=== PATIENT | male | born 1990 | race American Indian/Alaskan Native ===

== ENCOUNTER 2020-05-18 21:26 | Emergency (ER) | payer SELFPAY ==
--- NOTE | 2020-05-18 22:59 | Emergency Department Report ---
ED Seizure HPI - General Chief Complaint: Seizure Stated Complaint: SEIZURE Time Seen by Provider: 05/18/20 22:58 Source: patient, RN notes reviewed Mode of arrival: Ambulatory Limitations: No Limitations - History of Present Illness Initial Comments: The patient was evaluated in the emergency department for symptoms described in the history of present illness. He/she was evaluated in the context of the global COVID-19 pandemic, which necessitated consideration that the patient might be at risk for infection with the virus that causes COVID-19. In stitutional protocols and algorithms that pertain to the evaluation of patients at risk for COVID-19 are in a state of rapid change based on information released by regulatory bodies including the CDC and federal and state organizations. These policies and algorithms were followed during the patient's care in the emergency department. Please note that these policies, procedures and recommendations changed on a rapid basis. Patient is a 30-year-old gentleman. He is not known to myself previously. He recently moved here from [place]. He states he is going to follow-up closely with an outpatient primary care doctor, but he cannot recall their name. He reports a history of seizure disorder, and reports that he takes Dilantin 300 mg orally twice daily. He ran out of his medication 2 or 3 days ago. He presents to the ER today with a complaint of resolved seizure. Patient was at home, laying down, when he had a convulsive event. He is not sure how long it lasted. He states it was witnessed by a family member. Prior to the event, the patient reports being in his usual state of health, and denies all complaints. After the reported seizure/convulsive event, the patient states he has a mild headache, which is frontal, not sudden or thunderclap in nature normal and not maximal in intensity, not the worst headache of his life, and consistent with prior headaches. He states that he typically gets headaches with seizures. His last seizure was a few years ago. He denies cough, loss of taste, loss of smell, and urinary symptoms. MD Complaint: seizure -: Sudden Description of Episode: loss of consciousness, tonic-clonic movement -: second(s) Witnessed:: Yes Trauma: No Seizure History: known seizure disorder, other Place: home Possible Precipitating Event: other (Ran out of medication) Associated Symptoms: denies other symptoms - Related Data Previous Rx's Medication Instructions Recorded Last Taken Type Phenytoin Sodium Extended 300 mg PO BID #60 capsule 05/18/20 Unknown Rx Allergies Allergy/AdvReac Type Severity Reaction Status Date / Time No Known Allergies Allergy Unverified 05/18/20 22:38 ED Review of Systems ROS: Stated complaint: SEIZURE Other details as noted in HPI Comment: All other systems reviewed and negative Neurological: headache ED Past Medical Hx - Past Medical History Previous Medical History?: Yes Hx Seizures: Yes - Surgical History Past Surgical History?: No - Social History Smoking Status: Current Every Day Smoker Substance Use Type: None - Medications Home Medications: Home Medications Medication Instructions Recorded Confirmed Last Taken Type Phenytoin Sodium Extended 300 mg PO BID #60 capsule 05/18/20 Unknown Rx ED Physical Exam - General Limitations: No Limitations General appearance: alert, in no apparent distress - Head Head exam: Present: atraumatic, normocephalic - Eye Eye exam: Present: normal appearance, PERRL, EOMI, other (Visual acuity intact to finger counting, color perception, reading at a close distance). Absent: nystagmus - ENT ENT exam: Present: normal exam, normal orophraynx, mucous membranes moist, normal external ear exam - Neck Neck exam: Present: normal inspection, full ROM. Absent: tenderness, meningismus - Respiratory Respiratory exam: Present: normal lung sounds bilaterally. Absent: respiratory distress, wheezes, rales, rhonchi, stridor, decreased breath sounds - Cardiovascular Cardiovascular Exam: Present: regular rate, normal rhythm, normal heart sounds. Absent: bradycardia, tachycardia, irregular rhythm, systolic murmur, diastolic murmur, rubs, gallop - GI/Abdominal GI/Abdominal exam: Present: soft. Absent: distended, tenderness, guarding, rebound, rigid, pulsatile mass - Rectal Rectal exam: Present: deferred - Extremities Exam Extremities exam: Present: normal inspection, full ROM, other (2+ pulses noted in the bilateral upper and lower extremities. There is no palpable cord. negative Homans sign. Muscular compartments are soft. The pelvis is stable.). Absent: pedal edema, calf tenderness - Back Exam Back exam: Present: normal inspection, full ROM. Absent: tenderness, CVA tenderness (R), CVA tenderness (L), paraspinal tenderness, vertebral tenderness - Neurological Exam Neurological exam: Present: alert, oriented X3, normal gait, other (No facial droop. Tongue midline. Extraocular movements intact bilaterally. Facial sensation intact to light touch in V1, V2, V3 distribution bilaterally. 5 and a 5 strength in 4 extremities. Sensation intact to light touch in 4 extremities.). Absent: motor sensory deficit - Psychiatric Psychiatric exam: Present: normal affect, normal mood - Skin Skin exam: Present: warm, dry, intact, normal color. Absent: rash ED Course Vital Signs 05/18/20 05/18/20 05/18/20 22:29 22:40 23:10 Temperature 98.7 F 98.2 F Pulse Rate 78 88 Respiratory 16 16 16 Rate Blood Pressure 148/99 Blood Pressure 148/99 146/96 [Left] O2 Sat by Pulse 98 98 Oximetry - Reevaluation(s) Reevaluation #1: 05/18/20 23:08 Differential diagnosis, include but not limited to: Seizure Medication refill Assessment and plan: Cooperative 30-year-old gentleman with history of seizure disorder normal ran out of his Dilantin, who presents as clinically sober with a GCS of 15, NIH score of 0, in no acute distress. Screening laboratory studies, EKG ordered we will administer Dilantin in the emergency room. We will observe patient in the emergency room. Patient is amenable to this plan of care. He is instructed to not drive or operate motor vehicles for the next 6 months. Reevaluation #2: 05/18/20 23:59 Vital signs are reviewed and appreciated. No seizures while here in the emergency room. Patient playing with his cell phone, and does not appear to be any acute distress. He states he is reliable to follow-up. He will be discharged at this time. ED Medical Decision Making - Lab Data Result diagrams: 05/18/20 22:48 Vital Signs 05/18/20 05/18/20 22:29 22:40 Temperature 98.7 F Pulse Rate 78 Respiratory 16 16 Rate Blood Pressure 148/99 Blood Pressure 148/99 [Left] O2 Sat by Pulse 98 Oximetry - EKG Data -: EKG Interpreted by Me EKG shows normal: sinus rhythm Rate: normal - EKG Data When compared to previous EKG there are: previous EKG unavailable 05/18/20 23:07 Sinus rhythm, 69 bpm, there is a borderline leftward axis deviation, the QTC is within normal limits, sinus arrhythmia, minimal motion artifact, this EKG is not a STEMI. There is no prior for comparison. Critical care attestation.: If time is entered above; I have spent that time in minutes in the direct care of this critically ill patient, excluding procedure time. ED Disposition Clinical Impression: History of seizure, Medication refill Disposition: - TO HOME OR SELFCARE Is pt being admited?: No Does the pt Need Aspirin: No Condition: Stable Instructions: Recurrent Seizures Adult (ED) Additional Instructions: Do not drive or operate motor vehicles for the next 6 months, or until cleared to do so by a primary care doctor or neurologist. Take the prescribed seizure medication as needed and directed, follow-up with a primary care doctor or neurologist within the next 5 to 7 days. Avoid consumption of alcohol, tobacco, smoke products. Please return to the emergency room right away with new pain, worsening, migration of the normal projectile vomiting, change in mental status, confusion, inability to tolerate liquid feeds, recurrent convulsive events/seizures, or new, worsened or different symptoms nonrigid on the initial emergency room evaluation. Prescriptions: Phenytoin Sodium Extended 300 mg PO BID #60 capsule Referrals: CHIO ARNDT MD [Staff Physician] - 3-5 Days FLETCHER MONCADA MD [Referring] - 3-5 Days
[2020-05-18] MEDS ORDERED: PHENYTOIN 100 MG CAPSULE.ER PO ONE (23:04)
[2020-05-18 23:25] LABS: BUN/Creatinine Ratio 14; Blood Urea Nitrogen 13 mg/dL (9-20); Calcium 9.4 mg/dL (8.4-10.2); Hemolysis Index 17
[2020-05-19] VITALS: BP 137/89
== END 2020-05-19 00:05 | disposition home or self-care (01) ==
LOC: ED 21:26
DX: G40.909 Epilepsy, unspecified, not intractable, without status epilepticus (principal); F17.200 Nicotine dependence, unspecified, uncomplicated; Z76.0 Encounter for issue of repeat prescription; Z79.899 Other long term (current) drug therapy
CPT/HCPCS: 36415; 80048; 80185; 82550; 83735; 93005

== ENCOUNTER 2020-06-19 09:01 | Emergency (ER) | payer SELFPAY ==
[2020-06-19 09:10] VITALS: BP 155/96
[2020-06-19 10:37] LABS: Hemoglobin 18.5 gm/dl (11.8-15.2); Mean Corpuscular HGB Conc 35 % (32-34); Mean Corpuscular Volume 79 fl (84-94); Red Blood Count 6.74 M/mm3 (3.65-5.03); Red Cell Distribution Width 14.2 % (13.2-15.2)
[2020-06-19 10:46] LABS: BUN/Creatinine Ratio 16; Blood Urea Nitrogen 13 mg/dL (9-20); Calcium 9.8 mg/dL (8.4-10.2); Hemolysis Index 37
[2020-06-19 10:59] LABS: Platelet Count 131 K/mm3 (140-440)
== END 2020-06-19 13:30 | disposition left against medical advice (07) ==
LOC: ED 09:01
DX: R56.9 Unspecified convulsions (principal); Z53.21 Procedure and treatment not carried out due to patient leaving prior to being seen by health care provider
CPT/HCPCS: 36415; 80048; 85027

== ENCOUNTER 2021-07-11 18:06 | Emergency (ER) | payer SELFPAY ==
[2021-07-11] MEDS ORDERED: KETOROLAC 30 MG/1 ML INJ IV ONE (18:40)
[2021-07-11 19:06] LABS: Basophils % (Auto) 0.3 % (0.0-1.8); Eosinophils # (Auto) 0.1 K/mm3 (0.0-0.4); Eosinophils % (Auto) 1.7 % (0.0-4.3); Hematocrit 49.2 % (35.5-45.6); Hemoglobin 16.1 gm/dl (11.8-15.2); Lymphocytes # (Auto) 2.9 K/mm3 (1.2-5.4); Lymphocytes % (Auto) 36.4 % (13.4-35.0); Mean Corpuscular HGB Conc 33 % (32-34); Mean Corpuscular Volume 81 fl (84-94); Monocytes # (Auto) 0.7 K/mm3 (0.0-0.8); Monocytes % (Auto) 9.3 % (0.0-7.3); Platelet Count 158 K/mm3 (140-440); Red Cell Distribution Width 14.3 % (13.2-15.2)
[2021-07-11 19:15] LABS: BUN/Creatinine Ratio 14; Blood Urea Nitrogen 13 mg/dL (9-20); Calcium 9.1 mg/dL (8.4-10.2); Hemolysis Index 11
[2021-07-11] MEDS ORDERED: FOSPHENYTOIN 1,000 MG.PE in SODIUM CHLORIDE 0.9% 100 ML IV ONE (19:32)
--- NOTE | 2021-07-11 19:35 | Emergency Department Report ---
ED Seizure HPI - General Chief Complaint: Seizure Stated Complaint: SEIZURE Time Seen by Provider: 07/11/21 18:39 Source: patient Mode of arrival: Ambulatory Limitations: No Limitations - History of Present Illness Initial Comments: 31-year-old male, history of seizures, presents to ED following seizure at home. Patient states he normally takes Dilantin, however, states he has been out of his medication for the last day and a half. Patient had a witnessed seizure at home by his girlfriend. Denies any head injury. Patient was lying on the couch during his seizure. Patient currently complaining of his usual postictal headache. States he usually gets a headache following his seizures. MD Complaint: seizure -: This evening Description of Episode: loss of consciousness Witnessed:: Yes Seizure History: known seizure disorder Place: home Possible Precipitating Event: other (Ran out of medications) Associated Symptoms: denies other symptoms Treatments Prior to Arrival: none - Related Data Previous Rx's Medication Instructions Recorded Last Taken Type Phenytoin Sodium Extended 300 mg PO BID #60 capsule 07/11/21 Unknown Rx Allergies Allergy/AdvReac Type Severity Reaction Status Date / Time No Known Allergies Allergy Unverified 05/18/20 22:38 ED Review of Systems ROS: Stated complaint: SEIZURE Other details as noted in HPI Comment: All other systems reviewed and negative Constitutional: denies: fever Gastrointestinal: denies: nausea, vomiting Neurological: headache. denies: weakness, numbness ED Past Medical Hx - Past Medical History Hx Seizures: Yes - Social History Smoking Status: Current Every Day Smoker Substance Use Type: None - Medications Home Medications: Home Medications Medication Instructions Recorded Confirmed Last Taken Type Phenytoin Sodium Extended 300 mg PO BID #60 capsule 07/11/21 Unknown Rx ED Physical Exam - General Limitations: No Limitations General appearance: alert, in no apparent distress - Head Head exam: Present: atraumatic, normocephalic - Eye Eye exam: Present: normal appearance, PERRL, EOMI - ENT ENT exam: Present: mucous membranes moist - Neck Neck exam: Present: normal inspection - Respiratory Respiratory exam: Present: normal lung sounds bilaterally. Absent: respiratory distress - Cardiovascular Cardiovascular Exam: Present: regular rate, normal rhythm - GI/Abdominal GI/Abdominal exam: Present: soft. Absent: distended, tenderness - Extremities Exam Extremities exam: Present: normal inspection - Neurological Exam Neurological exam: Present: alert, oriented X3, CN II-XII intact. Absent: motor sensory deficit - Psychiatric Psychiatric exam: Present: normal affect, normal mood - Skin Skin exam: Present: warm, dry, intact, normal color ED Course Vital Signs 07/11/21 07/11/21 07/11/21 18:12 19:14 21:00 Temperature 98.5 F Pulse Rate 102 H 73 Respiratory 20 16 14 Rate Blood Pressure 157/104 128/82 [Right] O2 Sat by Pulse 98 97 99 Oximetry ED Medical Decision Making - Lab Data Result diagrams: 07/11/21 18:45 07/11/21 18:45 - Medical Decision Making No seizure activity here in the ED. Patient A&O x3, no neuro deficits present. Labs unremarkable except for very low normal Dilantin level. Patient was given IV load here in the ED. Will discharge at this time with prescription. Outpatient follow-up advised, return precautions given. - Differential Diagnosis Seizure, GI abnormality, subtherapeutic level of medication Critical care attestation.: If time is entered above; I have spent that time in minutes in the direct care of this critically ill patient, excluding procedure time. ED Disposition Clinical Impression: Seizure Disposition: 01 HOME / SELF CARE / HOMELESS Is pt being admited?: No Condition: Stable Instructions: Seizure, Adult, [id number] Prescriptions: Phenytoin Sodium Extended 300 mg PO BID #60 capsule Referrals: FLETCHER MONCADA MD [Referring] - 3-5 Days [facility] [Provider Group] - 3-5 Days Time of Disposition: 20:55
[2021-07-11 21:19] VITALS: BP 128/82
== END 2021-07-11 21:16 | disposition home or self-care (01) ==
LOC: ED 18:06
DX: G40.909 Epilepsy, unspecified, not intractable, without status epilepticus (principal); F17.200 Nicotine dependence, unspecified, uncomplicated
CPT/HCPCS: 36415; 80048; 80185; 85025; 96365; 96375; 99283; J1885; Q2009

== ENCOUNTER 2021-08-26 09:09 | Emergency (ER) | payer SELFPAY ==
[2021-08-26] MEDS ORDERED: ACETAMINOPHEN 325 MG TAB PO ONE (10:25)
[2021-08-26] MEDS ORDERED: METOCLOPRAMIDE 10 MG TAB PO ONE (10:25)
[2021-08-26] MEDS ORDERED: IBUPROFEN 400 MG TAB PO ONE (10:25)
[2021-08-26] MEDS ORDERED: PHENYTOIN 100 MG CAPSULE.ER PO ONE (10:25)
--- NOTE | 2021-08-26 10:26 | Emergency Department Report ---
ED General Adult HPI - General Chief complaint: Seizure Stated complaint: HAD SEIZURE AT WORK PUI?: No Time Seen by Provider: 08/26/21 09:59 Source: patient, RN notes reviewed, old records reviewed Mode of arrival: Ambulatory Limitations: No Limitations - History of Present Illness Initial comments: The patient was evaluated in the emergency department for symptoms described in the history of present illness. He/she was evaluated in the context of the global COVID-19 pandemic, which necessitated consideration that the patient might be at risk for infection with the virus that causes COVID-19. Institutional protocols and algorithms that pertain to the evaluation of patients at risk for COVID-19 are in a state of rapid change based on information released by regulatory bodies including the CDC and federal and state organizations. These policies and algorithms were followed during the patient's care in the emergency department. Please note that these policies, procedures and recommendations changed on a rapid basis. The patient is a 31-year-old gentleman, whom I have evaluated in the past, who presents to the ER today with a complaint of "I think I had a seizure at work." Patient is supposed to take phenytoin/Dilantin, 300 mg twice daily, and reports intermittent compliance with his medications. The patient states that he was at work in the usual state of health, and he believes that he had a seizure. Prior to the seizure/convulsive event, he denies all pain and symptoms. He thinks that he may have hit his head, and has a mild left-sided headache. Patient denies neck pain, chest pain, abdominal pain, shortness of breath, drug use, urinary symptoms, extremity weakness and numbness. His last convulsive event was a few months ago. He states he is attempting to obtain medical insurance so he can follow-up with an outpatient physician -: Sudden Location: head Consistency: now resolved Improves with: none Worsens with: none Associated Symptoms: denies other symptoms - Related Data Previous Rx's Medication Instructions Recorded Last Taken Type Acetaminophen [Non-Aspirin Extra 500 mg PO Q6HR PRN #30 tablet 08/26/21 Unknown Rx Strength] Metoclopramide [Reglan] 10 mg PO QID PRN #30 tablet 08/26/21 Unknown Rx Phenytoin Sodium Extended 300 mg PO BID #60 capsule 08/26/21 Unknown Rx Allergies Allergy/AdvReac Type Severity Reaction Status Date / Time No Known Allergies Allergy Unverified 05/18/20 22:38 ED Review of Systems ROS: Stated complaint: HAD SEIZURE AT WORK Other details as noted in HPI Constitutional: denies: fever Eyes: denies: eye discharge, vision change ENT: denies: epistaxis Respiratory: denies: cough Cardiovascular: denies: chest pain Gastrointestinal: denies: abdominal pain, nausea, vomiting Neurological: headache. denies: weakness, numbness, paresthesias ED Past Medical Hx - Past Medical History Hx Seizures: Yes - Social History Smoking Status: Current Every Day Smoker Substance Use Type: None - Medications Home Medications: Home Medications Medication Instructions Recorded Confirmed Last Taken Type Acetaminophen [Non-Aspirin Extra 500 mg PO Q6HR PRN #30 tablet 08/26/21 Unknown Rx Strength] Metoclopramide [Reglan] 10 mg PO QID PRN #30 tablet 08/26/21 Unknown Rx Phenytoin Sodium Extended 300 mg PO BID #60 capsule 08/26/21 Unknown Rx ED Physical Exam - General Limitations: No Limitations General appearance: alert, in no apparent distress - Head Head exam: Present: atraumatic, normocephalic - Eye Eye exam: Present: normal appearance, PERRL, EOMI, other (Visual acuity intact to finger counting, color perception, reading at a close distance). Absent: nystagmus - ENT ENT exam: Present: normal exam, normal orophraynx, mucous membranes moist, normal external ear exam - Neck Neck exam: Present: normal inspection, full ROM. Absent: tenderness, meningism us - Respiratory Respiratory exam: Present: normal lung sounds bilaterally. Absent: respiratory distress, wheezes, rales, rhonchi, stridor, decreased breath sounds - Cardiovascular Cardiovascular Exam: Present: regular rate, normal rhythm, normal heart sounds. Absent: bradycardia, tachycardia, irregular rhythm, systolic murmur, diastolic murmur, rubs, gallop - GI/Abdominal GI/Abdominal exam: Present: soft. Absent: distended, tenderness, guarding, rebound, rigid, pulsatile mass - Rectal Rectal exam: Present: deferred - Extremities Exam Extremities exam: Present: normal inspection, full ROM, other (2+ pulses noted in the bilateral upper and lower extremities. There is no palpable cord. negative Homans sign. Muscular compartments are soft. The pelvis is stable.). Absent: pedal edema, calf tenderness - Back Exam Back exam: Present: normal inspection, full ROM. Absent: tenderness, CVA tenderness (R), CVA tenderness (L), paraspinal tenderness, vertebral tenderness - Neurological Exam Neurological exam: Present: alert, oriented X3, normal gait, other (No facial droop. Tongue midline. Extraocular movements intact bilaterally. Facial sensation intact to light touch in V1, V2, V3 distribution bilaterally. 5 and a 5 strength in 4 extremities. Sensation intact to light touch in 4 extremities.). Absent: motor sensory deficit - Psychiatric Psychiatric exam: Present: normal affect, normal mood - Skin Skin exam: Present: warm, dry, intact, normal color. Absent: rash ED Course Vital Signs 08/26/21 08/26/21 09:27 13:36 Temperature 98.0 F Pulse Rate 87 75 Respiratory 15 18 Rate Blood Pressure 136/90 Blood Pressure 138/82 [Right] O2 Sat by Pulse 99 Oximetry ED Medical Decision Making - Lab Data Vital Signs 08/26/21 09:27 Temperature 98.0 F Pulse Rate 87 Respiratory 15 Rate Blood Pressure 136/90 O2 Sat by Pulse 99 Oximetry - EKG Data -: EKG Interpreted by Nh EKG shows normal: sinus rhythm Rate: normal - EKG Data When compared to previous EKG there are: no significant change 08/26/21 12:20 The EKG is interpreted 10: 12 Sinus rhythm, 64 bpm. Normal axis, normal intervals, high left ventricular voltage, and motion artifact. Unchanged from prior EKG from May 18, 2020. This EKG is not a STEMI. - Medical Decision Making Differential diagnosis, including but not limited to: Seizure, migraine headache, tension headache, cluster headache Noncompliance, medication refill Assessment and plan: 31-year-old gentleman, with a history of seizures, whom I have seen in the past, who is noncompliant with his Dilantin, who presents to the ER with complaint of history of seizure, which is now resolved. He is clinically sober, with a GCS of 15, NIH score of 0, and an unremarkable physical and neurologic examination. Do not see indication for advanced imaging given young age, benign neurologic examination, and overall presentation. Patient at low risk for major adverse intracranial event as per the [place] head CT rule Patient was observed in the ER for hours without clinical deterioration. He was advised to not drive or operate motor vehicles for the next 6 months. Will discharge with as needed Tylenol, Reglan, and refill his phenytoin/Dilantin. Return precautions reviewed. All questions answered. Critical care attestation.: If time is entered above; I have spent that time in minutes in the direct care of this critically ill patient, excluding procedure time. ED Disposition Clinical Impression: History of seizure, Noncompliance with medication regimen, Medication refill, Headache Disposition: 01 HOME / SELF CARE / HOMELESS Is pt being admited?: No Does the pt Need Aspirin: No Condition: Good Instructions: Head Injury, Adult, Seizure, Adult Additional Instructions: Please take the pain medication and headache medication as needed and directed. Please take your Dilantin/phenytoin as directed. Noncompliance with seizure medication may result in breakthrough seizure, which may cause , disability, paralysis, and loss of quality of life. Please do not drive or operate motor vehicles for the next 6 months. Please follow-up with a primary care doctor or neurologist within the next 7 to 10 days for repeat checkup and evaluation. Minimize/avoid consumption of alcohol. Please return to the emergency room right away with new pain, worsened pain, migration of pain, projectile vomiting, change in mental status, confusion, inability tolerate liquid feeds, new, worsened or different symptoms not present on the initial emergency room evaluation Prescriptions: Acetaminophen [Non-Aspirin Extra Strength] 500 mg PO Q6HR PRN #30 tablet PRN Reason: Pain , Severe (7-10) Phenytoin Sodium Extended 300 mg PO BID #60 capsule Metoclopramide [Reglan] 10 mg PO QID PRN #30 tablet PRN Reason: Headache Referrals: MARIELOS RUSS MD [Primary Care Provider] - 3-5 Days FLETCHER MONCADA MD [Referring] - 3-5 Days DANNY HAIDER MD [Staff Physician] - 3-5 Days [facility] [Provider Group] - 3-5 Days Forms: Work/School Release Form(ED)
[2021-08-26 13:36] VITALS: BP 138/82
--- NOTE | 2021-08-27 10:06 | Electrocardiograph Report ---
[facility] Test Date: 2021-08-26 Test Time: 10:12:49 Pat Name: YAZMIN TORRES Department: Room: Gender: M Deep Tissue Massage Therapist: CADEN : 1990 Requested By: HOSSEIN COSTELLO Order Number: [id number] Reading MD: Rosendo Choi Measurements Intervals [place] Rate: 64 P: 54 NM: 147 QRS: 49 QRSD: 83 T: 40 QT: 375 QTc: 388 Interpretive Statements Sinus rhythm ST elev, probable normal early repol pattern No previous ECG available for comparison Electronically Signed On 08-27-2021 10:05:47 EST by Rosendo Choi
== END 2021-08-26 13:36 | disposition home or self-care (01) ==
LOC: ED 09:09
DX: G40.909 Epilepsy, unspecified, not intractable, without status epilepticus (principal); Z91.14 Patient's other noncompliance with medication regimen; Z76.0 Encounter for issue of repeat prescription; R51.9 Headache, unspecified; F17.200 Nicotine dependence, unspecified, uncomplicated
CPT/HCPCS: 93005; 99282

== ENCOUNTER → 2022-02-26 | Emergency (ER) | payer SELFPAY ==
[2022-02-26 03:24] VITALS: BP 152/99
[2022-02-26 04:24] LABS: Hemoglobin 16.2 gm/dl (11.8-15.2); Mean Corpuscular HGB Conc 33 % (32-34); Mean Corpuscular Volume 79 fl (84-94); Platelet Count 164 K/mm3 (140-440); Red Blood Count 6.23 M/mm3 (3.65-5.03); Red Cell Distribution Width 15.2 % (13.2-15.2)
[2022-02-26 04:45] LABS: Alanine Aminotransferase 30 units/L (7-56); Albumin 4.3 g/dL (3.9-5); BUN/Creatinine Ratio 24; Blood Urea Nitrogen 19 mg/dL (9-20); Calcium 9.6 mg/dL (8.4-10.2); Hemolysis Index 48
[2022-02-26 04:57] LABS: Total Cells Counted 100
[2022-02-26 04:58] LABS: Platelet Estimate Consistent w Auto; RBC Morphology Normal
== END ==
LOC: ED 02:17
DX: R51.9 Headache, unspecified (principal); Z53.21 Procedure and treatment not carried out due to patient leaving prior to being seen by health care provider
CPT/HCPCS: 36415; 80053; 80185; 85007; 85025

== ENCOUNTER 2022-03-16 03:06 | Emergency (ER) | payer SELFPAY ==
[2022-03-16 03:32] VITALS: BP 167/114
== END 2022-03-16 03:18 | disposition left against medical advice (07) ==
LOC: ED 03:06
DX: R20.0 Anesthesia of skin (principal); F41.9 Anxiety disorder, unspecified; Z53.21 Procedure and treatment not carried out due to patient leaving prior to being seen by health care provider